=== PATIENT | male | born 1970 | race Caucasian/White ===

== ENCOUNTER 2017-07-05 15:42 | Inpatient (IN) | payer OTHER ==
[~2017-07-05] VITALS: Ht 180.3 cm; Wt 93.3 kg
[2017-07-05 16:48] VITALS: BP 117/70; PULSE 72; RESP 18
[2017-07-05 16:55] VITALS: Ht 180.3 cm; Wt 93.3 kg
[2017-07-05] MEDS ORDERED: ACETAMINOPHEN 325 MG TAB PO PRN (18:00)
[2017-07-05] MEDS ORDERED: ONDANSETRON 4 MG INJ IV PRN (18:00)
[2017-07-05] MEDS ORDERED: NACL 0.9% 3 ML SYG IV SCH (18:00)
[2017-07-05] MEDS ORDERED: MAGNESIUM HYDROXIDE 30ML CUP PO PRN (18:00)
[2017-07-05] MEDS ORDERED: DOCUSATE SODIUM 100 MG CAP PO PRN (18:00)
[2017-07-05] MEDS ORDERED: ZOLPIDEM 5 MG TAB PO PRN (18:00)
[2017-07-05] MEDS: morphine 2 MG INJ IV PRN ×2 (18:02→22:06)
--- NOTE | 2017-07-05 18:02 | HP ---
Date/Time of Note Date/Time of Note DATE: 07/05/17 TIME: 17:58 Assessment/Plan VTE Prophylaxis VTE Prophylaxis Intervention: LMWH Assessment/Plan Chief Complaint/Hosp Course 1. Comminuted fracture of the distal tibia status post closed reduction with persistent pain Patient is currently in a splint Ortho consult has been obtained, follow-up with recommendations Pain control Prophylaxis: Lovenox Problems: HPI/ROS Admit Date/Time Admit Date/Time Jul 05, 2017 at 16:45 Hx of Present Illness Patient is a 46-year-old male with no medical history, patient jumped off his roof 4 days ago, patient went to the ED at [place] where he had a close reduction for a comminuted fracture of the distal left fibula in the ER. Patient was told to follow-up with his PCP but he was unable to and presented back to [facility] where x-ray once again showed similar fracture. Patient has persistent pain and was transferred for insurance reasons. Patient has no other acute complaints. ROS Constitutional: improved, no complaints Eyes: no complaints ENT: no complaints Respiratory: no complaints Cardiovascular: no complaints Gastrointestinal: no complaints Genitourinary: no complaints Musculoskeletal: bone/joint pain Skin: no complaints Neurologic: no complaints Endocrine: no complaints Lymphatic: no complaints Psychological: nl mood/affect, no complaints Immunologic: no complaints PMH/Family/Social Past Medical History Medical History: no pertinent history Past Surgical History Past Surgical Hx: no surgical history Family History Significant Family History: no pertinent family hx Social History Alcohol Use: none Smoking Status: Former smoker Drug Use: none Exam/Review of Systems Vital Signs Vitals Vital Signs Date Time Temp Pulse Resp B/P Pulse Ox O2 Delivery O2 Flow Rate FiO2 07/05/17 16:48 98.0 72 18 117/70 94 Exam Constitutional: alert, oriented Head: normocephalic Respiratory: clear to auscultation Cardiovascular: regular rate and rhythm Gastrointestinal: soft, No distended Musculoskeletal: No nl extremities to inspection Medications Medications Current Medications Ondansetron HCl (Zofran Inj) 4 mg Q6H PRN IV NAUSEA AND/OR VOMITING; Start 07/05/17 at 18:00 Acetaminophen (Tylenol Tab) 650 mg Q6H PRN PO PAIN LEVEL 1-3 OR FEVER; Start 07/05/17 at 18:00 Acetaminophen/ Hydrocodone Bitart ([place] (5/325)) 1 tab Q6H PRN PO MODERATE PAIN LEVEL 4-6; Start 07/05/17 at 18:00 Morphine Sulfate (morphine) 2 mg Q4H PRN IV SEVERE PAIN LEVEL 7-10; Start 07/05 at 18:00 Docusate Sodium (Colace) 100 mg Q12H PRN PO CONSTIPATION; Start 07/05/17 at 18: 00 Magnesium Hydroxide (Milk Of Mag) 30 ml DAILY PRN PO CONSTIPATION; Start at 18:00 Zolpidem Tartrate (Ambien) 5 mg QHS PRN PO SLEEP; Start 07/05/17 at 18:00 Heparin Sodium (Porcine) (Heparin (5000 Units/0.5 ml)) 5,000 unit Q12 SC ; Start 07/05/17 at 21:00 MAGGI FIGUEROA Jul 05, 2017 18:02
[2017-07-05 20:00] VITALS: BP 107/74; PULSE 85; RESP 20
[2017-07-05] MEDS: HEPARIN 5,000 UNIT/0.5 ML VIAL SC SCH (21:10)
[2017-07-06 02:00] VITALS: BP 121/86; RESP 20
[2017-07-06] MEDS: morphine 2 MG INJ IV PRN ×6 (02:04→22:41)
[2017-07-06 05:54] LABS: BASOPHILS % 0.5 % (0.0-2.0); EOSINOPHILS # 0.1 10^3/ul (0.0-0.5); EOSINOPHILS % 1.8 % (0.0-7.0); HEMATOCRIT 44.6 % (37.0-47.0); HEMOGLOBIN 15.3 g/dl (12.0-16.0); LYMPHOCYTES % 27.9 % (15.0-51.0); MEAN CORPUSCULAR HEMOGLOBIN 30.9 pg (29.0-33.0); MEAN CORPUSCULAR HGB CONC 34.3 g/dl (32.0-37.0); MEAN CORPUSCULAR VOLUME 90.1 fl (82.0-101.0); MEAN PLATELET VOLUME 10.2 fl (7.4-10.4); MONOCYTE # 0.7 10^3/ul (0.3-0.9); MONOCYTES % 9.8 % (0.0-11.0); NEUTROPHIL # 4.4 10^3/ul (1.6-7.5); NEUTROPHILS % 59.6 % (39.0-77.0); PLATELET COUNT 244 10^3/UL (140-415); RED BLOOD COUNT 4.95 10^6/ul (4.20-5.40); RED CELL DISTRIBUTION WIDTH 12.1 % (11.5-14.5); WHITE BLOOD COUNT 7.3 10^3/ul (4.8-10.8)
[2017-07-06 06:36] LABS: ALBUMIN/GLOBULIN RATIO 1.25; BILIRUBIN,INDIRECT 0.5 mg/dl (0-1.1); BILIRUBIN,TOTAL 0.5 mg/dl (0.2-1.3); CALCIUM 8.9 mg/dl (8.4-10.2); CHOL/HDL RATIO 4.3 RATIO; CREATININE 0.84 mg/dl (0.44-1.00); PHOSPHORUS 5.3 mg/dl (2.5-4.9); POTASSIUM 4.5 mmol/L (3.5-5.1); TOTAL PROTEIN 7.2 g/dl (6.1-8.1)
--- NOTE | 2017-07-06 06:58 | RADRPT ---
PROCEDURE: XR Ankle. CLINICAL INDICATION: Left ankle series TECHNIQUE: AP, oblique, and lateral views of the left ankle were performed. COMPARISON: None available FINDINGS: Comminuted, closed, fracture of the left distal tibia is noted with in a splint. Displacement of fra cture fragments by a maximum of 6 mm is noted of the larger fracture fragments. Involvement of the p osterior malleolus is noted. The ankle mortise appears mildly widened medially however gross anatomi c alignment of fracture fragments are noted. The soft tissues demonstrate mild soft tissue swelling without radiodense foreign bodies. IMPRESSION: 1. Closed, comminuted left distal tibial fracture with mild displacement of the fracture fragments and gross anatomic alignment in splint. 2. Mild widening of the medial ankle mortise which appears grossly intact. RPTAT: HDC .Mary Ellen Rodriguez MD, Date Time Electronically viewed and signed by .Mary Ellen Rodriguez MD, on 07/06/2017 06:58 .C/
--- NOTE | 2017-07-06 07:01 | CONS ---
DATE OF ADMISSION: 07/05/2017 DATE OF CONSULTATION: 07/05/2017 CHIEF COMPLAINT: Left ankle pain. HISTORY OF PRESENT ILLNESS: This is a 46-year-old male who jumped off a roof 4 days ago. Patient w ent to the emergency department at [place] where a closed reduction maneuver was performed. The patient did not follow instructions and presented back to [facility] Emergency Department. He was s ubsequently accepted by the hospitalist staff at [facility] without communication with m yself. He is currently in a splint. He is complaining of severe left ankle pain. He has no other complaints. PAST MEDICAL HISTORY: None. MEDICATIONS: None. PAST SURGICAL HISTORY: None. SOCIAL HISTORY: He denies current tobacco or alcohol use. He is a previous tobacco user. FAMILY HISTORY: Noncontributory. ALLERGIES: NO KNOWN DRUG ALLERGIES. PHYSICAL EXAMINATION: VITAL SIGNS: Temperature 98.0, 117/70, pulse is 72, respiratory rate of 18. GENERAL: The patient is in no acute distress. EXTREMITIES: Left ankle splint. The splint is intact. There is swelling of the left ankle. He is neurovascularly intact. IMAGING: X-rays, left ankle: X-rays from previous hospital demonstrate a comminuted intra-articula r distal tibia fracture. There is comminution of the joint line. There is also a fracture of the d istal fibula. There is a posterior malleolus fracture. There is no joint dislocation. IMPRESSION: A 46-year-old male who fell off a roof with a left closed comminuted intra-articular di stal tibia fracture. PLAN: The patient will be nonweightbearing. The patient requires higher level of care. I recommen d transfer to an orthopedic traumatologist for open reduction, internal fixation. I explained to the patient that unfortunately, he has sustained a very high, severe, impact fracture to the left ankle. There is a risk of nonunion, malunion, altered gait, infection, need for revisi on surgery, risk of amputation. It is in his best interest to be transferred to an institution for an orthopedic traumatologist for a high level of care given the complexity of the fracture. Dictated By: BILLY FRIEDMAN/ALPHONSO Conf#: [id number] DID#: [id number]
[2017-07-06 07:47] VITALS: BP 113/73; RESP 16
[2017-07-06] MEDS: HEPARIN 5,000 UNIT/0.5 ML VIAL SC SCH ×2 (11:08→20:49)
[2017-07-06 14:23] VITALS: BP 123/84; RESP 16
--- NOTE | 2017-07-06 14:37 | PN ---
Date/Time of Note Date/Time of Note DATE: 07/06/17 TIME: 14:36 Assessment/Plan VTE Prophylaxis VTE Prophylaxis Intervention: LMWH Lines/Catheters IV Catheter Type (from Nrs): Saline Lock Assessment/Plan Chief Complaint/Hosp Course 1. Comminuted fracture of the distal tibia status post closed reduction with persistent pain Patient is currently in a splint Ortho consult with Dr Mojica has been obtained, follow-up with recommendations Pain control Prophylaxis: Lovenox Problems: Subjective 24 Hr Interval Summary Musculoskeletal: bone/joint pain Exam/Review of Systems Vital Signs Vitals Vital Signs Date Time Temp Pulse Resp B/P Pulse Ox O2 Delivery O2 Flow Rate FiO2 07/06/17 14:23 98.1 80 16 123/84 94 07/05/17 20:00 Room Air Intake and Output 07/05/17 07/05/17 07/06/17 15:00 23:00 07:00 Intake Total 440 ml Output Total 500 ml Balance 440 ml -500 ml Exam Constitutional: alert, oriented Respiratory: clear to auscultation Cardiovascular: regular rate and rhythm Gastrointestinal: soft, No distended Musculoskeletal: No nl extremities to inspection Results Result Diagram: 07/06/17 0520 07/06/17 0520 Results 24 hrs Laboratory Tests Test 07/06/17 05:20 White Blood Count 7.3 Red Blood Count 4.95 Hemoglobin 15.3 Hematocrit 44.6 Mean Corpuscular Volume 90.1 Mean Corpuscular Hemoglobin 30.9 Mean Corpuscular Hemoglobin Concent 34.3 Red Cell Distribution Width 12.1 Platelet Count 244 Mean Platelet Volume 10.2 Neutrophils % 59.6 Lymphocytes % 27.9 Monocytes % 9.8 Eosinophils % 1.8 Basophils % 0.5 Nucleated Red Blood Cells % 0.0 Neutrophils # 4.4 Lymphocytes # 2.0 Monocytes # 0.7 Eosinophils # 0.1 Basophils # 0.0 Nucleated Red Blood Cells # 0.0 Sodium Level 139 Potassium Level 4.5 Chloride Level 100 Carbon Dioxide Level 29 Anion Gap 15 Blood Urea Nitrogen 10 Creatinine 0.84 Glucose Level 102 Hemoglobin A1c 5.1 Calcium Level 8.9 Phosphorus Level 5.3 H Magnesium Level 2.0 Total Bilirubin 0.5 Direct Bilirubin 0.00 Indirect Bilirubin 0.5 Aspartate Amino Transf (AST/SGOT) 33 Alanine Aminotransferase (ALT/SGPT) 39 Alkaline Phosphatase 62 Total Protein 7.2 Albumin 4.0 Globulin 3.20 Albumin/Globulin Ratio 1.25 Triglycerides Level 148 Cholesterol Level 147 LDL Cholesterol, Calculated 83 HDL Cholesterol 34 Cholesterol/HDL Ratio 4.3 Medications Medications Current Medications Ondansetron HCl (Zofran Inj) 4 mg Q6H PRN IV NAUSEA AND/OR VOMITING; Start 07/05/17 at 18:00 Acetaminophen (Tylenol Tab) 650 mg Q6H PRN PO PAIN LEVEL 1-3 OR FEVER; Start 07/05/17 at 18:00 Acetaminophen/ Hydrocodone Bitart ([place] (5/325)) 1 tab Q6H PRN PO MODERATE PAIN LEVEL 4-6; Start 07/05/17 at 18:00 Morphine Sulfate (morphine) 2 mg Q4H PRN IV SEVERE PAIN LEVEL 7-10 Last administered on 07/06/17 14:28; Admin Dose 2 MG; Start 07/05/17 at 18:00 Docusate Sodium (Colace) 100 mg Q12H PRN PO CONSTIPATION; Start 07/05/17 at 18: 00 Magnesium Hydroxide (Milk Of Mag) 30 ml DAILY PRN PO CONSTIPATION; Start at 18:00 Zolpidem Tartrate (Ambien) 5 mg QHS PRN PO SLEEP; Start 07/05/17 at 18:00 Heparin Sodium (Porcine) (Heparin (5000 Units/0.5 ml)) 5,000 unit Q12 SC Last administered on 07/06/17 11:08; Admin Dose 5,000 UNIT; Start 07/05/17 at 21:00 MAGGI FGIUEROA Jul 06, 2017 14:37
--- NOTE | 2017-07-06 16:29 | RADRPT ---
PROCEDURE: CT left ankle without contrast. CLINICAL INDICATION: Evaluate distal left leg and ankle. TECHNIQUE: CT scan of the left ankle was performed on a multi -slice scanner. No IV contrast was administered. Coronal and sagittal reformatted images were obtained from the axial source images. The total exam DLP equals 539 mGy-cm. The CDTI volume was 18 mGy. Images were reviewed on a high-res [employer] PACS workstation. One or more of the following dose reduction techniques were used: Automated exposure control Adjustment of the mA and/or kV according to patient size. Use of iterative reconstruction technique. COMPARISON: Same day radiographs FINDINGS: There is a displaced comminuted multipart intra-articular fracture of the distal tibia extending to the tibiotalar articulation. There are fracture fragments displaced anterolateral and posterolateral to the joint. The entire lateral tibial plafond component of the fracture is displaced and does not articulate with the talar dome. The posterior malleolus portion of the fracture is also displaced p osteriorly. A portion of the medial tibiotalar joint is intact as well as the medial malleolus. Smal ler scattered comminuted fracture fragments are also present. The subtalar, talonavicular, calcaneocuboid, naviculocuneiform joints are intact. The tarsometatarsa l joints are intact. There is a punctate ossific fragment between the first and second tarsometatarsal joints which may c orrespond with an old osteophyte. There is a subchondral cyst within the distal aspect of the latera l cuneiform. The metatarsophalangeal joints are intact. There is a bipartite medial sesamoid. There is diffuse soft tissue swelling surrounding the ankle. The anterior talofibular, calcaneofibul ar, and syndesmotic ligaments are likely torn although limited in evaluation on CT. RPTAT: TT IMPRESSION: 1. Displaced comminuted multipartite intra-articular fracture of the distal tibia extending to the t ibiotalar articulation in which the mid to lateral aspect of the tibial plafond is displaced anterol ateral and posterolateral to the joint as well as displacement of the posterior malleolus posteriorl y. A portion of the medial tibiotalar articulation is intact. 2. Likely disruption of the anterior talofibular, calcaneofibular, and syndesmotic ligaments. .Katrina Blackwell MD, MD Date Time Electronically viewed and signed by .Katrina Blackwell MD, MD on 07/06/2017 16:29 .T/
[2017-07-06] MEDS: HYDROCODONE/APAP (5/325) TAB PO PRN (18:10)
[2017-07-06 19:28] VITALS: BP 143/79; RESP 20
[2017-07-07 02:24] VITALS: BP 119/87; RESP 20
[2017-07-07 07:36] VITALS: BP 145/77; RESP 18
[2017-07-07] MEDS: HYDROCODONE/APAP (5/325) TAB PO PRN ×3 (08:03→20:44)
[2017-07-07] MEDS: HEPARIN 5,000 UNIT/0.5 ML VIAL SC SCH (08:21)
[2017-07-07] MEDS: morphine 2 MG INJ IV PRN ×3 (08:40→18:58)
[2017-07-07 14:41] VITALS: BP 122/74; RESP 18
--- NOTE | 2017-07-07 15:55 | DS ---
Date/Time of Note Date/Time of Note DATE: 07/07/17 TIME: 15:53 Discharge Summary Admission/Discharge Info Admit Date/Time Jul 05, 2017 at 16:45 Discharge Date/Time July 07, 2017 Discharge Diagnosis 1. Comminuted fracture of the distal tibia status post closed reduction with persistent pain Patient is currently in a splint Ortho consult obtained and recommendation is for higher level of care due to nature of fracture Pain control Patient Condition: Fair Hospital Course Patient is a 46-year-old male with no medical history, patient jumped off his roof 4 days ago, patient went to the ED at [place] where he had a close reduction for a comminuted fracture of the distal left fibula in the ER. Patient was told to follow-up with his PCP but he was unable to and presented back to [facility] where x-ray once again showed similar fracture. Patient had persistent pain and was transferred to [facility] for insurance reasons , patient was seen by orthopedists who recommended transfer to higher level of care due to the nature of fracture. On the of discharge patient's vitals, labs and physical exam was stable he had no acute complaints and questions were answered. Home Meds No Active Prescriptions or Reported Meds Primary Care Provider Care Physician No Primary Time spent on discharge: > 30 minutes MAGGI FIGUEROA Jul 07, 2017 15:55
[2017-07-07 19:31] VITALS: BP 116/79; RESP 20
== END 2017-07-07 20:50 | disposition short-term general hospital (02) | DRG 563 ==
LOC: EDSEX 16:45 → MS2 16:45
PROVIDERS: ADMIT Internal Medicine; ATTEND Internal Medicine
DX: S82.392A Other fracture of lower end of left tibia, initial encounter for closed fracture (principal); W13.2XXA Fall from, out of or through roof, initial encounter
CPT/HCPCS: 73700; 80053; 80061; 83036; 83735; 84100; 85025; J1644; J2270